=== PATIENT | female | born 1975 | race African-American/Black ===

== ENCOUNTER → 2025-05-04 | Outpatient (REF) | payer BC ==
[~2025-05-04] MED LIST: REGADENOSON 0.4 MG/5 ML SYR IV ONE
== END ==
LOC: NM 07:57
PROVIDERS: ATTEND Internal Medicine Cardiovascular Disease
DX: R07.9 Chest pain, unspecified (principal)
CPT/HCPCS: 78452; 81025; 93017; A9502; J2785